=== PATIENT | female | born 1990 ===

== ENCOUNTER 2017-06-06 17:35 | Emergency (ER) | payer OTHER ==
[2017-06-06 17:41] VITALS: BP 120/70; PULSE 73; RESP 16; TEMP 98.4; O2SAT 98
--- NOTE | 2017-06-06 18:22 | EDPHY ---
H & P Stated Complaint: R hand/wrist finger pain x 2 days without known trauma Time Seen by Provider: 06/06/17 17:52 HPI/ROS: Chief Complaint: Right hand and wrist pain HPI: 26-year-old woman who is been having intermittent pain in her right hand and wrist for the last several days. She is waking up at night occasionally with pins and needles sensation aching in her hand. She has also been dropping things and seemed to have some weakness there is well. She is right handed. No recent falls or injuries. No redness or warmth. No fevers or chills. ROS: 10 point Review of Systems is negative except as noted in the HPI. PMH: Denies Social History: [No] smoking, [no] alcohol, [ no recreational drug use] Family History: [non-contributory] Physical Exam: General: Awake, alert, no acute distress Right upper extremity: She has no bony tenderness. She has sensation intact in the radial, median, and ulnar nerve distribution. She has some mild weakness in the medial nerve distribution. She has a positive Phalen's and Tinel's sign. Capillary refills less than 2 sec. Skin: No rash - Personal History LMP (Females 10-55): 8-14 Days Ago Current Tetanus/Diphtheria Vaccine: Unsure Current Tetanus Diphtheria and Acellular Pertussis (TDAP): Unsure - Medical/Surgical History Hx Asthma: No Hx Chronic Respiratory Disease: No Hx Diabetes: No Hx Cardiac Disease: No Hx Renal Disease: No Hx Cirrhosis: No Hx Alcoholism: No Hx HIV/AIDS: No Hx Splenectomy or Spleen Trauma: No Other PMH: arthritis. tbi - Social History Smoking Status: Never smoked Constitutional: Initial Vital Signs Temperature (C) 36.9 C 06/06/17 17:39 Heart Rate 73 06/06/17 17:39 Respiratory Rate 16 06/06/17 17:39 Blood Pressure 120/70 06/06/17 17:39 O2 Sat (%) 98 06/06/17 17:39 O2 Delivery Mode Room Air Allergies/Adverse Reactions: No Known Allergies Allergy (Unverified 06/06/17 17:37) Home Medications: Medication Instructions Recorded NK [No Known Home Meds] 06/06/17 Departure - Departure Disposition: Home, Routine, Self-Care Clinical Impression: Carpal tunnel syndrome Condition: Good Instructions: Paresthesia (ED) Additional Instructions: Continue wearing the splint, particularly at night. Apply ice to your wrist. Take ibuprofen 600 mg 3 times a day. Follow up with Hand surgery in 4-5 days for further evaluation. Referrals: Lucinda Ambriz MD [Medical Doctor] - As per Instructions
== END 2017-06-06 18:45 | disposition home or self-care (01) ==
DX: G56.01 Carpal tunnel syndrome, right upper limb (principal)